=== PATIENT | male | born 1940 | race Caucasian/White ===

== ENCOUNTER 2018-11-28 12:09 | Inpatient (IN) | payer OTHER ==
[~2018-11-28] VITALS: Ht 162.6 cm; Wt 64.4 kg
[2018-11-28 12:14] VITALS: BP 102/62
--- NOTE | 2018-11-28 12:30 | NUR ---
77m biba with c/o 5/10 non provoked "sharp" intermittent chest pain that radiates to stomach, mid back, and bl arms x 3 days. Patient also reports of not "feeling like himself" and vomitting but denies any sob diarrhea or fevers. Pt is aox4 to person, place, time, and situation. RR are even and unlabored. Abd soft and non tender. Skin is warm/dry/color apprioriate for age. NAD. Awaiting er md sanchez. Pt to cardiac, bp, pulse, pulse ox monitoring. Will continue to monitor.
[2018-11-28] MEDS ORDERED: NACL 0.9% 2,000 ML IV ONE (12:44)
[2018-11-28] MEDS ORDERED: POTA10TE30 PO ×2 (12:47→20:30)
[2018-11-28] MEDS ORDERED: TRI48 PO ×2 (12:47→20:30)
[2018-11-28] MEDS ORDERED: ROSU10TA1 PO (12:47)
[2018-11-28] MEDS ORDERED: DILT300C16 PO ×2 (12:47→20:30)
[2018-11-28] MEDS ORDERED: VITD1000 PO (12:47)
[2018-11-28] MEDS ORDERED: CAR30 PO ×2 (12:47→20:30)
[2018-11-28] MEDS ORDERED: FISH1SGL18 PO (12:47)
[2018-11-28] MEDS ORDERED: MULT-2527 PO (12:47)
[2018-11-28] MEDS ORDERED: TERA5CAP8 PO ×2 (12:47→20:30)
[2018-11-28] MEDS ORDERED: ORE25 PO ×2 (12:47→20:30)
--- NOTE | 2018-11-28 12:56 | NUR ---
lab by bedside
[2018-11-28 13:08] LABS: BASOPHILS % (AUTO) 0.2 % (0.0-2.0); EOSINOPHILS % (AUTO) 0.3 % (0.0-4.0); HEMATOCRIT 38.6 % (36-52); HEMOGLOBIN 12.7 g/dL (12.0-18.0); LYMPHOCYTES # (AUTO) 0.2 K/uL (2.0-11.5); LYMPHOCYTES % (AUTO) 3.7 % (20.5-51.1); MEAN CORPUSCULAR HEMOGLOBIN 30 pg (27-31); MEAN CORPUSCULAR HGB CONC 33 g/dL (33-37); MEAN CORPUSCULAR VOLUME 91.3 fL (80-94); MONOCYTES # (AUTO) 0.1 K/uL (0.8-1.0); MONOCYTES % (AUTO) 1.1 % (1.7-9.3); NEUTROPHILS % (AUTO) 94.7 % (42.2-75.2); PLATELET COUNT (AUTO) 235 K/uL (140-450); RED BLOOD CELL COUNT(AUTO) 4.23 MIL/uL (4.20-6.10); RED CELL DISTRIBUTION WIDTH 14.5 % (11.6-13.7); WHITE BLOOD COUNT (AUTO) 5.3 K/uL (4.8-10.8)
[2018-11-28 13:32] LABS: ALBUMIN 2.6 g/dL (3.4-5.0); ANION GAP 10.2 (8-16); ASPARTATE AMINOTRANSFERASE 490 U/L (15-37); CARBON DIOXIDE 29.1 mmol/L (21-32); CHLORIDE 105 mmol/L (98-107); CREATININE 1.9 mg/dL (0.7-1.3); GLUCOSE 92 mg/dL (74-106); POTASSIUM 3.3 mmol/L (3.5-5.1); SODIUM SERUM 141 mmol/L (136-145); UREA NITROGEN, BLOOD 32 mg/dL (7-18)
[2018-11-28 13:33] LABS: PROTHROMBIN TIME 10.9 secs (10.8-13.4)
[2018-11-28] MEDS ORDERED: OSELTAMIVIR PHOSPHATE 75 MG CAP PO ONE (13:40)
[2018-11-28] MEDS ORDERED: ACETAMINOPHEN EXTRA STRENGTH 500 MG TAB PO ONE (14:15)
--- NOTE | 2018-11-28 14:50 | NUR ---
Patient denies any cp at this time. Patient with no new complaints. NAD. VSS. Will continue to monitor.
[2018-11-28 15:20] LABS: LIPASE 30516 U/L (73-393)
[2018-11-28] MEDS: NACL 0.9% 1,000 ML IV SCH ×2 (15:52→20:32)
[2018-11-28] MEDS ORDERED: DOCUSATE SODIUM 100 MG GELCAP PO PRN (15:55)
[2018-11-28] MEDS ORDERED: ONDANSETRON 4 MG/2 ML VIAL IM/IVP PRN (15:55)
[2018-11-28] MEDS ORDERED: ACETAMINOPHEN 325 MG TAB PO PRN (15:55)
[2018-11-28] MEDS ORDERED: MORPHINE SULFATE 4 MG/ML SYR IVP PRN (15:55)
[2018-11-28] MEDS ORDERED: LORazepam 2 MG/ML VIAL IM/IVP PRN (15:55)
[2018-11-28 16:33] LABS: MAGNESIUM 1.6 mg/dL (1.8-2.4); PHOSPHORUS 1.4 mg/dL (2.5-4.9); THYROID STIMULATING HORMONE 0.54 uIU/mL (0.34-3.74)
[2018-11-28] MEDS ORDERED: cefTRIAXone 1,000 MG VIAL ONE (16:37)
[2018-11-28] MEDS ORDERED: POTASSIUM CHLORIDE 40 MEQ, LIDOCAINE MPF 1% - 5 mL VIAL 25 MG in NACL 0.9% 250 ML IV ONE (16:45)
[2018-11-28] MEDS ORDERED: MAG SULF 2000 MG/WATER PREMIX 50 ML IV ONE ×2 (16:45→18:08)
[2018-11-28 16:52] LABS: APPEARANCE,URINE CLEAR (CLEAR); BILIRUBIN,URINE NEGATIVE (NEGATIVE); BLOOD, URINE TRACE-I (NEGATIVE); COLOR,URINE YELLOW (YELLOW); LEUKOCYTE ESTERASE ,URINE 1+ (NEGATIVE); NITRITE, URINE POSITIVE (NEGATIVE); UGLUCOSE NEGATIVE (NEGATIVE)
--- NOTE | 2018-11-28 16:52 | NUR ---
Patient will be admitted to care of [facility]. Admited to Tele. Will go to room 112-b. Belongings list completed. Bedside report to John ZAMUDIO.
[2018-11-28 17:00] VITALS: BP 111/55
--- NOTE | 2018-11-28 17:00 | NUR ---
RECEIVED BEDSIDE REPORT FROM ER NURSE. PATIENT IS AWAKE, ALERT AND ORIENTEDX4. NO SIGNS OF DISTRESS ON RA. SKIN IS INTACT. IV ON L FA 20G SL. CLEAN, DRY AND INTACT. PATIENT AMBULATED TO THE BED. WEAKNESS NOTED. FALL RISK PROTOCOL IN PLACE. PATIENT IS CONTINENT. TELE MONITOR IN PLACE. MRSA SWAB DONE. ALL ADMISSION QUESTIONS ANSWERED. BED IN LOW POSITION. CALL LIGHT WITHIN REACH. DROPLET PRECAUTIONS IN PLACE FOR INFLUENZA B. WILL CONTINUE TO MONITOR
[2018-11-28 17:02] LABS: RBC,URINE 3-10 (FEW) /HPF (0-5)
--- NOTE | 2018-11-28 18:06 | NUR ---
OVERRIDE MAGNESIUM WITH CHARGE NURSE RILEY, ADMINISTERED MG, MG 1.6. PATIENT TOLERATING WELL. WILL CONTINUE TO MONITOR THE PATIENT
--- NOTE | 2018-11-28 19:05 | NUR ---
RECEIVED ENDORSEMENT FROM AM SHIFT LEYLA; PATIENT A/Ox4 BUT WEAK, ABLE TO MAKE NEEDS KNOWN. ON DROPLET PRECAUTIONS. CURRENTLY NPO EXCEPT MEDS. NO SOB OR DISTRESS NOTED. IV SITE ON LEFT FOREARM, INTACT AND PATENT. SKIN INTACT. BOARD UPDATED. BED IN THE LOWEST POSITION, CALL LIGHT WITHIN REACH. WILL CONTINUE TO MONITOR.
--- NOTE | 2018-11-28 19:10 | NUR ---
gave bedside report to network account manager nurse. patient endorsed in stable condition
[2018-11-28] MEDS ORDERED: KCL 20 MEQ/WATER INJ PREMIX 200 ML IV ONE (19:45)
[2018-11-28 20:00] VITALS: BP 123/73
[2018-11-28] MEDS ORDERED: PIPERACILLIN/TAZOBACTAM 2.25 GM VIAL IV ONE (20:24)
[2018-11-28] MEDS: PIPER/TAZO 2.25GM/D5W PREMIX 50 ML IV SCH (20:28)
[2018-11-28] MEDS ORDERED: OSELTAMIVIR PHOSPHATE 75 MG CAP PO SCH (21:00)
--- NOTE | 2018-11-28 21:30 | NUR ---
FREQUENT ROUNDS MADE. PATIENT ASLEEP, EYES CLOSED, VISIBLE CHEST RISE AND FALL NOTED. WILL CONTINUE TO MONITOR.
[2018-11-29] VITALS: BP 137/76
--- NOTE | 2018-11-29 00:30 | NUR ---
PATIENT COMPLAINED OF 5/10 LEFT ABDOMINAL PAIN. WILL MEDICATE ORDERED. WILL CONTINUE TO MONITOR.
[2018-11-29] MEDS: HYDROcodone/APAP 5/325 MG 1 TAB TAB PO PRN (00:33)
--- NOTE | 2018-11-29 02:30 | NUR ---
ROUNDS DONE. PATIENT ASLEEP, EYES CLOSED, VISIBLE CHEST RISE AND FALL NOTED. WILL CONTINUE TO MONITOR.
[2018-11-29 04:00] VITALS: BP 133/72
--- NOTE | 2018-11-29 04:40 | NUR ---
IVF CHANGED. PATIENT ASLEEP, EYES CLOSED, VISIBLE CHEST RISE AND FALL NOTED. NO SOB OR DISTRESS NOTED. WILL CONTINUE TO MONITOR.
[2018-11-29] MEDS: PIPER/TAZO 2.25GM/D5W PREMIX 50 ML IV SCH ×3 (04:44→21:54)
[2018-11-29] MEDS: NACL 0.9% 1,000 ML IV SCH ×4 (04:44→13:14)
[2018-11-29] MEDS ORDERED: PIPERACILLIN/TAZOBACTAM 2.25 GM VIAL IV ONE (04:44)
--- NOTE | 2018-11-29 06:29 | NUR ---
ROUNDS DONE. PATIENT ASLEEP, EYES CLOSED, VISIBLE CHEST RISE AND FALL NOTED. NO SOB OR DISTRESS NOTED. WILL CONTINUE TO MONITOR.
--- NOTE | 2018-11-29 07:18 | NUR ---
ENDORSED PATIENT TO AM LIZZ TORO. PATIENT IN STABLE CONDITION.
--- NOTE | 2018-11-29 07:25 | NUR ---
RECEIVED PT REPORT FROM PLANER OFFBEARER RN AT BEDSIDE. PT IS AAOx4, ABLE TO MAKE NEEDS KNOWN. ON DROPLET PRECAUTIONS FOR FLU. CURRENTLY NPO EXCEPT MEDS. NO S/S DISTRESS NOTED. DENIES ANY PAIN. IV SITE ON LEFT FOREARM, 20G, INTACT AND PATENT, RUNNING IVF NS AT 126ML/HR. SKIN INTACT. BOARD UPDATED. BED IN THE LOWEST POSITION, CALL LIGHT WITHIN REACH. WILL CONTINUE TO MONITOR.
[2018-11-29 08:00] VITALS: BP 153/74
[2018-11-29] MEDS: POTASSIUM CHLORIDE 10 MEQ TABER PO SCH (08:06)
--- NOTE | 2018-11-29 08:06 | NUR ---
PATIENT HAS BEEN SCREENED AND CATEGORIZED HIGH NUTRITION RISK. PATIENT WILL BE SEEN WITHIN 1-2 DAYS OF ADMISSION. 11/29/18-11/30/[address]
[2018-11-29] MEDS: DILTIAZEM 60 MG TAB PO SCH ×2 (08:08→22:07)
[2018-11-29] MEDS: HYDROCHLOROTHIAZIDE 25 MG TAB PO SCH (08:09)
[2018-11-29] MEDS: LACTOBACILLUS RHAMNOSUS GG 1 EACH CAP PO SCH (08:09)
[2018-11-29 08:10] LABS: BASOPHILS % (AUTO) 0.1 % (0.0-2.0); EOSINOPHILS # (AUTO) 0.5 K/uL (0-0.4); EOSINOPHILS % (AUTO) 6.8 % (0.0-4.0); HEMOGLOBIN 12.1 g/dL (12.0-18.0); LYMPHOCYTES # (AUTO) 0.8 K/uL (2.0-11.5); LYMPHOCYTES % (AUTO) 10.3 % (20.5-51.1); MEAN CORPUSCULAR HEMOGLOBIN 30 pg (27-31); MEAN CORPUSCULAR HGB CONC 33 g/dL (33-37); MEAN CORPUSCULAR VOLUME 91.7 fL (80-94); MONOCYTES # (AUTO) 0.6 K/uL (0.8-1.0); MONOCYTES % (AUTO) 7.4 % (1.7-9.3); NEUTROPHILS # (AUTO) 5.7 K/uL (1.8-7.7); NEUTROPHILS % (AUTO) 75.4 % (42.2-75.2); PLATELET COUNT (AUTO) 223 K/uL (140-450); RED BLOOD CELL COUNT(AUTO) 4.03 MIL/uL (4.20-6.10); RED CELL DISTRIBUTION WIDTH 14.9 % (11.6-13.7); WHITE BLOOD COUNT (AUTO) 7.5 K/uL (4.8-10.8)
[2018-11-29] MEDS: TERAZOSIN 1 MG CAP PO SCH (08:11)
[2018-11-29] MEDS: FENOFIBRATE 48 MG TAB PO SCH (08:12)
[2018-11-29] MEDS: TAMIFLU 30 MG PO SCH (08:20)
[2018-11-29 08:21] LABS: ALBUMIN 2.2 g/dL (3.4-5.0); BILIRUBIN,DIRECT 3.7 mg/dL (0.0-0.3); MAGNESIUM 2.1 mg/dL (1.8-2.4); PHOSPHORUS 2.2 mg/dL (2.5-4.9); TOTAL BILIRUBIN 4.3 mg/dL (0.0-1.0)
[2018-11-29 08:23] LABS: ANION GAP 11.2 (8-16); CARBON DIOXIDE 26.5 mmol/L (21-32); CHLORIDE 108 mmol/L (98-107); CREATININE 1.7 mg/dL (0.7-1.3); GLUCOSE 107 mg/dL (74-106); POTASSIUM 3.7 mmol/L (3.5-5.1); SODIUM SERUM 142 mmol/L (136-145)
[2018-11-29 08:30] LABS: UREA NITROGEN, BLOOD 23 mg/dL (7-18)
[2018-11-29] MEDS ORDERED: ATORVASTATIN 20 MG TAB PO SCH (09:00)
[2018-11-29] MEDS ORDERED: DILTIAZEM 90 MG CAPER PO SCH (09:00)
[2018-11-29 09:14] LABS: CHOL/HDL RATIO 5.8 (1-4.5)
[2018-11-29 12:00] VITALS: BP 120/65
--- NOTE | 2018-11-29 12:23 | NUR ---
SPOKE WITH DR ORTEGA OVER THE PHONE. REPORTED US ABD RESULT, DR RATLIFF SAID NO ERCP NEEDED, HAVE THE SURGEON TO DO THE CHOLECYSTECTOMY. RELAYED THE MESSAGE TO DR ROWAN.
--- NOTE | 2018-11-29 12:35 | NUR ---
PT'S BROTHER VISITED, PT VERBALLY AGREED TO LET HIS BROTHER BE INVOLVED IN HIS CARE. PLAN OF CARE DISCUSSED WITH PT AND PT'S BROTHER AT BEDSIDE. BOTH VERBALIZED UNDERSTANDING.
[2018-11-29] MEDS ORDERED: XALOS OP (12:44)
--- NOTE | 2018-11-29 13:00 | NUR ---
HELPED PT TO THE BATHROOM. GAIT IS PRETTY STEADY. MINIMAL ASSISTANCE PROVIDED TO HELP PT GETTING UP. PT SAFELY RETURNED TO BED.
--- NOTE | 2018-11-29 13:45 | NUR ---
PT IS SL, LEFT FOR HIDA SCAN.
[2018-11-29] MEDS ORDERED: MORPHINE SULFATE 2 MG/ML SYR IVP SCH (15:00)
[2018-11-29 16:00] VITALS: BP 127/71
--- NOTE | 2018-11-29 17:00 | NUR ---
ADVANCE DIRECTIVE RECEIVED FROM PT'S JAZIEL DEL TORO. FILED TO PT'S CHART.
--- NOTE | 2018-11-29 17:03 | NUR ---
PAGED DR THOMAS.
--- NOTE | 2018-11-29 18:50 | NUR ---
PT SIGNED THE CONSENT FOR SX. NO QUESTIONS AT THIS TIME.
--- NOTE | 2018-11-29 19:00 | NUR ---
RECEIVED PT AT BED SIDE FROM MUNA ZAMUDIO .PT IS AAOX4, ON TELEMETRY SR , IV ON LEFT FA INFUSING WELL PT IS READY GOING TO SURGERY , OR NURSES ARE HERE TO EQUIPMENT INSPECTOR PT FOR LAPAROSCOPIC POSSIBLE OPEN CHOLECYSTECTOMY,, INITIAL ASSESSMENT DONE
[2018-11-29] MEDS ORDERED: DEXAMETHASONE 4 MG/ML VIAL ONE (19:28)
[2018-11-29] MEDS ORDERED: DESFLURANE 240 ML BTL INH ONE (19:28)
[2018-11-29] MEDS ORDERED: LIDOCAINE 2% 100 MG/5 ML SYR IVP ONE (19:28)
[2018-11-29] MEDS ORDERED: ROCURONIUM 50 MG/5 ML VIAL IV ONE (19:28)
[2018-11-29] MEDS ORDERED: fentaNYL 0.05 MG/ML VIAL ONE (19:28)
[2018-11-29] MEDS ORDERED: SUCCINYLCHOLINE CHLORIDE 200 MG/10 ML VIAL IVP ONE (19:28)
[2018-11-29] MEDS ORDERED: ONDANSETRON 4 MG/2 ML VIAL ONE (19:28)
[2018-11-29] MEDS ORDERED: PHENYLEPHRINE 10 MG/ML VIAL ONE (19:28)
[2018-11-29] MEDS ORDERED: GLYCOPYRROLATE 0.2 MG/ML VIAL ONE (19:28)
[2018-11-29] MEDS ORDERED: PROPOFOL 200 MG/20 ML VIAL IV ONE (19:28)
--- NOTE | 2018-11-29 19:30 | NUR ---
ENDORSED PT TO FOUNDRY MOLDER. PT IS IN OR RIGHT NOW.
[2018-11-29] MEDS ORDERED: BUPIVACAINE-MPF/EPI 0.25% 30 ML VIAL INJ ONE (19:40)
[2018-11-29] MEDS ORDERED: ONDANSETRON 4 MG/2 ML VIAL IVP PRN (20:05)
[2018-11-29] MEDS ORDERED: HYDROmorphone 1 MG/ML AMP IVP PRN (20:05)
[2018-11-29] MEDS ORDERED: LATANOPROST 0.005% OP 2.5 ML BTL OP SCH (21:00)
--- NOTE | 2018-11-29 21:10 | NUR ---
RECEIVED PATIENT FROM OR S/P DEEDEE DELAROSA TO ICU ROOM 7. PT ON DROPLET PRECAUTIONS. PT AOX4. AFEBRILE. FOLLOWS COMMANDS. ABLE TO VERBALIZE NEEDS. ON NC 2LPM. EVEN UNLABORED BREATHING. SR ON MONITOR. DENIES CHEST PAIN. ABD SOFT NONDISTENDED. J DRAIN TO RIGHT ABD. FLUIDS TOLERATED. F/C IN PLACE. RED TINGED URINE. LAC 18G. IV SITE PATENT. ACTIVITY TOLERATED. NO SIGNS OF ACUTE DISTRESS. BED IN LOWEST POSITION. WILL CONTINUE TO MONITOR.
[2018-11-29] MEDS ORDERED: ACETAMINOPHEN 325 MG TAB PO PRN (21:20)
[2018-11-29] MEDS ORDERED: HYDROcodone/APAP 5/325 MG 1 TAB TAB PO PRN (21:20)
[2018-11-29] MEDS ORDERED: ONDANSETRON 4 MG/2 ML VIAL IV PRN (21:20)
[2018-11-29] MEDS ORDERED: MORPHINE SULFATE 4 MG/ML SYR IVP PRN (21:20)
[2018-11-29] MEDS: MORPHINE SULFATE 4 MG/ML SYR IV PRN (21:54)
[2018-11-29] MEDS: LATANOPROST 0.005% OP 2.5 ML BTL OP SCH (21:59)
[2018-11-29 22:21] VITALS: BP 127/71
--- NOTE | 2018-11-29 22:52 | NUR ---
PT REPORTS PAIN 8/10 TO LEFT ABD. WILL ADMINISTER BREAKTHROUGH PAIN MEDICATION.
[2018-11-30] VITALS (9 sets, daily range): BP systolic 115–157; BP diastolic 59–99
--- NOTE | 2018-11-30 01:48 | NUR ---
PT RESTING QUIETLY IN BED. NO SIGNS OF ACUTE DISTRESS AT THIS TIME.
[2018-11-30] MEDS: HYDROmorphone 1 MG/ML AMP IVP PRN ×2 (03:03→14:39)
--- NOTE | 2018-11-30 03:03 | NUR ---
PT C/O PAIN TO ABD. 07/12. WILL ADMINISTER DILAUDID IVP.
--- NOTE | 2018-11-30 04:03 | NUR ---
PT SLEEPING. NO SIGNS OF ACUTE DISTRESS NOTED.
[2018-11-30] MEDS: PIPER/TAZO 2.25GM/D5W PREMIX 50 ML IV SCH ×3 (04:34→20:22)
[2018-11-30] MEDS: NACL 0.9% 1,000 ML IV SCH ×4 (05:38→23:36)
--- NOTE | 2018-11-30 05:50 | NUR ---
RETRIEVED PHONE FROM [facility]. CELL PHONE AT BEDSIDE. DESCRIPTION: BLACK FLIP PHONE.
[2018-11-30 06:18] LABS: HEMATOCRIT 38.7 % (36-52); HEMOGLOBIN 12.5 g/dL (12.0-18.0); LYMPHOCYTES # (AUTO) 0.4 K/uL (2.0-11.5); LYMPHOCYTES % (AUTO) 3.4 % (20.5-51.1); MEAN CORPUSCULAR HEMOGLOBIN 30 pg (27-31); MEAN CORPUSCULAR HGB CONC 32 g/dL (33-37); MEAN CORPUSCULAR VOLUME 93.4 fL (80-94); MONOCYTES # (AUTO) 0.4 K/uL (0.8-1.0); MONOCYTES % (AUTO) 4.1 % (1.7-9.3); NEUTROPHILS # (AUTO) 9.8 K/uL (1.8-7.7); NEUTROPHILS % (AUTO) 92.5 % (42.2-75.2); PLATELET COUNT (AUTO) 246 K/uL (140-450); RED BLOOD CELL COUNT(AUTO) 4.15 MIL/uL (4.20-6.10); RED CELL DISTRIBUTION WIDTH 15.6 % (11.6-13.7); WHITE BLOOD COUNT (AUTO) 10.6 K/uL (4.8-10.8)
--- NOTE | 2018-11-30 06:27 | NUR ---
DR. ROWAN AT BEDSIDE AT THIS TIME. UPDATED ON PTS CURRENT CONDITION. WILL CONTINUE TO FOLLOW UP ANY ADDITIONAL ORDERS.
[2018-11-30 06:45] LABS: ANION GAP 10.9 (8-16); CARBON DIOXIDE 26.9 mmol/L (21-32); CHLORIDE 108 mmol/L (98-107); CREATININE 1.6 mg/dL (0.7-1.3); GLUCOSE 114 mg/dL (74-106); POTASSIUM 4.8 mmol/L (3.5-5.1); SODIUM SERUM 141 mmol/L (136-145); UREA NITROGEN, BLOOD 20 mg/dL (7-18)
[2018-11-30 06:48] LABS: MAGNESIUM 1.8 mg/dL (1.8-2.4); PHOSPHORUS 3.7 mg/dL (2.5-4.9)
--- NOTE | 2018-11-30 07:26 | NUR ---
ENDORSED CARE TO INCOMING SHIFT FOR CONTINUITY OF CARE. VSS. BED IN LOWEST POSITION. CALL LIGHT WITHIN REACH.
--- NOTE | 2018-11-30 07:30 | NUR ---
RECEIVED BEDSIDE REPORT FROM MARKETING ANALYTICS SPECIALIST NURSE. PT IS AAOX4. ABLE TO MAKE NEEDS KNOWN AND FOLLOWS COMMANDS. AFEBRILE. S/P LAP ISAURA. PAIN 2/10 AT THIS TIME. SR ON MONITOR. PT IS ON O2 AT 2 LPM/NC. BREATHING EVEN AND UNLABORED. DENIES CHEST PAIN. ABD SOFT, NONTENDER, NONDISTENDED. J DRAIN TO RIGHT ABD DRAINING DARK BROWN DRAINAGE. SURGICAL OPENINGS BAND-AID ON, CLEAN DRY AND INTACT. MCDONALD CATH IN PLACE DRAINING YELLOW URINE. PERIPHERAL IV G20 TO LEFT FOREARM PATENT AND INTACT, RECEIVING IV FLUID NS AT 126 ML/HR. BED IN LOWEST POSITION AND CALL LIGHT WITHIN REACH. WILL CONTINUE TO MONITOR.
[2018-11-30 08:55] LABS: ALBUMIN 2.2 g/dL (3.4-5.0); BILIRUBIN,DIRECT 2.1 mg/dL (0.0-0.3); TOTAL BILIRUBIN 2.5 mg/dL (0.0-1.0)
--- NOTE | 2018-11-30 09:00 | NUR ---
PERIPHERAL IV TO LEFT FOREARM DISCONNECTED FROM PT'S ARM MOVEMENT. NEW PERIPHERAL IV G22 INSERTED TO LEFT FOREARM, GOOD BLOOD RETURN NOTED. FLUSHED W/ NORMAL SALINE. PT TOLERATED WELL.
[2018-11-30] MEDS: HYDROCHLOROTHIAZIDE 25 MG TAB PO SCH (09:10)
[2018-11-30] MEDS: DILTIAZEM 60 MG TAB PO SCH ×2 (09:10→20:36)
[2018-11-30] MEDS: FENOFIBRATE 48 MG TAB PO SCH (09:10)
[2018-11-30] MEDS: TERAZOSIN 1 MG CAP PO SCH (09:11)
[2018-11-30] MEDS: LACTOBACILLUS RHAMNOSUS GG 1 EACH CAP PO SCH (09:11)
[2018-11-30] MEDS: POTASSIUM CHLORIDE 10 MEQ TABER PO SCH (09:11)
[2018-11-30] MEDS: TAMIFLU 30 MG PO SCH (09:12)
[2018-11-30] MEDS: ENOXAPARIN 30 MG/0.3 ML SYR SUBQ SCH (09:18)
--- NOTE | 2018-11-30 09:50 | NUR ---
MEDICATIONS ADMINISTERED ORDERED. PT TOLERATED WELL.
--- NOTE | 2018-11-30 11:22 | NUR ---
PT SEEN AND EXAMINED BY DR. THOMAS. WILL FOLLOW UP ON ORDERS.
--- NOTE | 2018-11-30 11:55 | NUR ---
LUNCH PROVIDED. PT ABLE TO EAT INDEPENDENTLY WITH MINIMAL ASSIST.
[2018-11-30 12:28] LABS: HEPATITIS A ANTIBODY IGM Negative (Negative); HEPATITIS B SURFACE ANTIBODY Non Reactive (.); HEPATITIS B SURFACE ANTIGEN Negative (Negative)
--- NOTE | 2018-11-30 13:06 | NUR ---
11/30/18 RD INITIAL ASSESSMENT COMPLETED PLEASE REFER TO NUTRITION ASSESSMENT UNDER CARE ACTIVITY FOR ESTIMATED NUTRITIONAL NEEDS. 1. CONTINUE CLEAR LIQUID DIET MEDICALLY NECESSARY 2. WHEN/IF PATIENT MEDICALLY STABLE TO BEGIN NUTRITION, RECOMMEND ADVANCE DIET TO [address] TO FOLLOW-UP 3-5 DAYS, MODERATE RISK ROB[address] RD
[2018-11-30 14:24] LABS: HEPATITIS B CORE AB TOTAL POSITIVE (NEGATIVE)
--- NOTE | 2018-11-30 14:35 | NUR ---
C/O PAIN OF 8/10 AT RIGHT ABD. WILL ADMINISTER PAIN MEDICATION ORDERED.
--- NOTE | 2018-11-30 16:05 | NUR ---
NO CHANGE OF CONDITION AT THIS TIME. PT IS AFEBRILE, VSS. NO C/O PAIN AT THIS TIME. 30 ML OF SANGUINOUS FLUID DRAINED FROM FUAD DRAIN. SAFETY PRECAUTIONS IN PLACE.
--- NOTE | 2018-11-30 17:44 | NUR ---
PT HAVING DINNER. BROTHER AND NIECE AT BEDSIDE. NEEDS WELL ATTENDED. NO SOB OR DISTRESS NOTED. PT DENIES PAIN. VSS. WILL CONTINUE TO MONITOR.
--- NOTE | 2018-11-30 19:00 | NUR ---
PT TRANSFERRED TO TELEMETRY ROOM 117. REPORT GIVEN TO LIZZ CROSS AT BEDSIDE. PT IS IN STABLE CONDITION.
--- NOTE | 2018-11-30 19:05 | NUR ---
RECEIVED REPORT FROM ICU NURSE FOR CONTINUITY OF CARE. PT IN STABLE CONDITION. IV INTACT AND PATENT. RESPIRATIONS EVEN AND UNLABORED. SAFETY MEASURES IN PLACE. CALL LIGHT AT BEDSIDE. BED IN LOW POSITION. WILL CONTINUE TO MONITOR.
--- NOTE | 2018-11-30 19:20 | NUR ---
GAVE REPORT TO PADDING GLUER NURSE FOR CONTINUITY OF CARE. PT IN STABLE CONDITION.
--- NOTE | 2018-11-30 19:21 | NUR ---
RECEIVED BEDSIDE REPORT FROM DAY SHIFT LIZZ CROSS. PT IS A&OX4. HAS NC AT 2L. NO S/S OF DISTRESS NOTED. PT HAS IV ON L FA 22G CURRENTLY SALINE LOCK. PT S/P LAP ISAURA WITH FUAD DRAIN IN PLACE DRAINING SEROSANGUINEOUS. DRESSINGS ARE CLEAN AND INTACT. PT WITH MCDONALD CATH IN PLACE. DRAINING CLEAR YELLOW URINE PER NURSE ORDER TO D/C TOMORROW. PT ON DROPLET ISOLATION FOR POSITIVE INFLUENZA B. SIGN ON THE DOOR. PLAN OF CARE DISCUSSED WITH PT. CALL LIGHT WITHIN REACH.
[2018-11-30] MEDS: MORPHINE SULFATE 4 MG/ML SYR IV PRN (20:16)
[2018-11-30] MEDS ORDERED: PIPERACILLIN/TAZOBACTAM 2.25 GM VIAL IV ONE (20:16)
[2018-11-30] MEDS ORDERED: MORPHINE SULFATE 4 MG/ML SYR ONE (20:20)
[2018-11-30] MEDS: LATANOPROST 0.005% OP 2.5 ML BTL OP SCH (20:41)
--- NOTE | 2018-11-30 20:41 | NUR ---
VITAL SIGNS ARE WITHIN NORMAL LIMITS. REMOVED NC PT SAT AT 97% ROOM AIR. DUE MEDICATIONS ADMINISTERED. CALL LIGHT WITHIN REACH. WILL CONTINUE TO MONITOR.
--- NOTE | 2018-11-30 22:00 | NUR ---
PT IS SLEEPING COMFORTABLY IN BED. NO S/S OF DISTRESS NOTED. WILL CONTINUE TO MONITOR.
[2018-12-01] VITALS: BP 155/81
--- NOTE | 2018-12-01 | NUR ---
VITAL SIGNS ARE WITHIN NORMAL LIMITS. ALL NEEDS MET AT THIS TIME. CALL LIGHT WITHIN REACH
--- NOTE | 2018-12-01 02:40 | NUR ---
PT SLEEPING COMFORTABLY IN BED. NO S/S OF DISTRESS. CALL LIGHT WITHIN REACH.
[2018-12-01 04:00] VITALS: BP 128/60
--- NOTE | 2018-12-01 04:00 | NUR ---
VITAL SIGNS ARE WITHIN NORMAL LIMITS. CALL LIGHT WITHIN REACH.
[2018-12-01] MEDS: PIPER/TAZO 2.25GM/D5W PREMIX 50 ML IV SCH ×3 (05:11→20:20)
--- NOTE | 2018-12-01 05:20 | NUR ---
MCDONALD CATH REMOVED PER ORDERS. PT TOLERATED WELL. WILL CONTINUE TO MONITOR
[2018-12-01 06:31] LABS: BASOPHILS % (AUTO) 0.1 % (0.0-2.0); EOSINOPHILS # (AUTO) 0.1 K/uL (0-0.4); HEMATOCRIT 35.7 % (36-52); HEMOGLOBIN 11.5 g/dL (12.0-18.0); LYMPHOCYTES # (AUTO) 0.8 K/uL (2.0-11.5); LYMPHOCYTES % (AUTO) 8.9 % (20.5-51.1); MEAN CORPUSCULAR HEMOGLOBIN 30 pg (27-31); MEAN CORPUSCULAR HGB CONC 32 g/dL (33-37); MEAN CORPUSCULAR VOLUME 92.8 fL (80-94); MONOCYTES # (AUTO) 0.6 K/uL (0.8-1.0); MONOCYTES % (AUTO) 6.3 % (1.7-9.3); NEUTROPHILS # (AUTO) 7.5 K/uL (1.8-7.7); NEUTROPHILS % (AUTO) 83.7 % (42.2-75.2); PLATELET COUNT (AUTO) 231 K/uL (140-450); RED BLOOD CELL COUNT(AUTO) 3.85 MIL/uL (4.20-6.10); WHITE BLOOD COUNT (AUTO) 8.9 K/uL (4.8-10.8)
[2018-12-01 06:59] LABS: ANION GAP 7.8 (8-16); CARBON DIOXIDE 26.1 mmol/L (21-32); CHLORIDE 107 mmol/L (98-107); CREATININE 1.4 mg/dL (0.7-1.3); GLUCOSE 117 mg/dL (74-106); POTASSIUM 3.9 mmol/L (3.5-5.1); SODIUM SERUM 137 mmol/L (136-145); UREA NITROGEN, BLOOD 17 mg/dL (7-18)
[2018-12-01 07:05] LABS: MAGNESIUM 1.6 mg/dL (1.8-2.4)
--- NOTE | 2018-12-01 07:20 | NUR ---
ENDORSED TO DAY SHIFT RN. PT IS IN STABLE CONDITION.
--- NOTE | 2018-12-01 07:21 | NUR ---
RECEIVED BEDSIDE REPORT FROM MOLD MAINTENANCE TECHNICIAN NURSE. PATIENT AAOX4. PATIENT ON ROOM AIR, NO DISTRESS NOTED. SKIN INTACT EXCEPT FOR ABDOMINAL INCISION WI FUAD DRAIN DRY AND INTACT. SURGICAL SITE DRESSINGS INTACT. PATIENT WILL SEE PT TODAY. IV ON LFA 22 G INFUSING NS AT 126. PATIENT ON DROPLET PRECAUTIONS FOR INFLUENZA B (+). PATIENT ON TELE MONITOR. SCDS IN PLACE. BED IN LOW POSITION, CALL LIGHT WITHIN REACH. WILL CONTINUE TO MONITOR.
[2018-12-01] MEDS: MORPHINE SULFATE 4 MG/ML SYR IV PRN ×2 (07:56→12:09)
[2018-12-01 08:00] VITALS: BP 141/78
[2018-12-01] MEDS ORDERED: OSELTAMIVIR PHOSPHATE 75 MG CAP PO SCH (09:00)
[2018-12-01] MEDS: TAMIFLU 30 MG PO SCH ×2 (09:00→21:30)
[2018-12-01 09:06] LABS: ALBUMIN 1.9 g/dL (3.4-5.0); BILIRUBIN,DIRECT 0.8 mg/dL (0.0-0.3); TOTAL BILIRUBIN 1.2 mg/dL (0.0-1.0)
[2018-12-01] MEDS: ENOXAPARIN 30 MG/0.3 ML SYR SUBQ SCH (09:45)
[2018-12-01] MEDS: POTASSIUM CHLORIDE 10 MEQ TABER PO SCH (09:51)
[2018-12-01] MEDS: LACTOBACILLUS RHAMNOSUS GG 1 EACH CAP PO SCH (09:51)
[2018-12-01] MEDS: TERAZOSIN 1 MG CAP PO SCH (09:52)
[2018-12-01] MEDS: FENOFIBRATE 48 MG TAB PO SCH (09:52)
[2018-12-01] MEDS: DILTIAZEM 60 MG TAB PO SCH ×2 (09:56→20:20)
[2018-12-01] MEDS: HYDROCHLOROTHIAZIDE 25 MG TAB PO SCH (09:57)
[2018-12-01] MEDS ORDERED: MAG SULF 2000 MG/WATER PREMIX 50 ML IV SCH (11:00)
[2018-12-01] MEDS: NACL 0.9% 1,000 ML IV SCH ×2 (11:04→18:18)
--- NOTE | 2018-12-01 12:09 | NUR ---
ADMINISTERED MORPHINE [address] THOMAS FOR SUTURE REMOVAL. BP 129/69 AND HR 94. WILL CONTINUE TO MONITOR PATIENT.
--- NOTE | 2018-12-01 13:30 | NUR ---
NIECE AT BEDSIDE. ANSWERED ALL QUESTIONS AND CONCERNS AT THIS TIME. NO DISTRESS NOTED. WILL CONTINUE TO MONITOR.
[2018-12-01 16:00] VITALS: BP 126/66
--- NOTE | 2018-12-01 19:09 | NUR ---
GAVE REPORT TO SUPERVISOR CUSTOMER RECORDS DIVISION NURSE. PATIENT ENDORSED IN STABLE CONDITION.
--- NOTE | 2018-12-01 19:11 | NUR ---
RECEIVED ENDORSEMENT FROM AM SHIFT RN FRANCISCO JAVIER. PATIENT A&Ox4, ABLE TO MAKE NEEDS KNOWN. NO SOB OR DISTRESS NOTED. IV SITE ON LEST FOREARM, 22 GAUGE, INFUSING NS AT 126mL/HR. PATIENT S/P LAP CHOLECYSTECTOMY; ABDOMINAL INCISION ON RIGHT LOWER ABDOMEN WITH FUAD DRAIN DRY AND INTACT. SURGICAL SITE DRESSINGS INTACT. PATIENT ON DROPLET PRECAUTIONS FOR INFLUENZA B (+). SCDS IN PLACE. BED IN THE LOWEST POSITION, CALL LIGHT WITHIN REACH. INITIAL ASSESSMENT DONE, ALL SAFETY PRECAUTIONS MET. WILL CONTINUE TO MONITOR.
--- NOTE | 2018-12-01 20:15 | NUR ---
DUE MEDS ADMINISTERED. NO S/SX OF DISTRESS NOTED. TOLERATED WELL. WILL CONTINUE TO MONITOR.
[2018-12-01] MEDS: LATANOPROST 0.005% OP 2.5 ML BTL OP SCH (20:22)
--- NOTE | 2018-12-01 22:40 | NUR ---
ROUNDS DONE. PATIENT ASLEEP, EYES CLOSED, VISIBLE CHEST RISE AND FALL NOTED. WILL CONTINUE TO MONITOR.
--- NOTE | 2018-12-02 01:01 | NUR ---
ROUNDS DONE. PATIENT ASLEEP, EYES CLOSED, VISIBLE CHEST RISE AND FALL NOTED. WILL CONTINUE TO MONITOR.
--- NOTE | 2018-12-02 03:32 | NUR ---
ROUNDS MADE. PATIENT ASLEEP, EYES CLOSED, VISIBLE CHEST RISE AND FALL NOTED. WILL CONTINUE TO MONITOR.
[2018-12-02] MEDS: PIPER/TAZO 2.25GM/D5W PREMIX 50 ML IV SCH ×3 (05:26→20:42)
--- NOTE | 2018-12-02 07:15 | NUR ---
ENDORSED PATIENT TO AM RN TANK; PATIENT IN STABLE CONDITION.
--- NOTE | 2018-12-02 07:30 | NUR ---
RECEIVED PT ON BED AAOX4. NO SOB NOTED. NO C/O PAIN AT THIS TIME. IV TO LT HAND PATENT AND INTACT. CHEST, DIMINISHED AIR ENTRY TO THE BASES, PT ON 2LPM OXYGEN THERAPY VIA NASAL CANNULA. ABDOMEN SOFT, BOWEL SOUNDS PRESENT, WITH 4 SMALL ABDOMINAL INCISIONS S/P LAP ISAURA, WITH RT FUAD DRAINING SMALL AMOUNTS OF SERO SANGUINOUS FLUID. NO EDEMA NOTED. INSTRUCTED PT TO CALL FOR ASSISTANCE, CALL LIGHT WITHIN REACH, PT VERBALIZED UNDERSTANDING.
[2018-12-02 08:08] LABS: BASOPHILS % (AUTO) 0.1 % (0.0-2.0); EOSINOPHILS # (AUTO) 0.2 K/uL (0-0.4); EOSINOPHILS % (AUTO) 2.5 % (0.0-4.0); HEMATOCRIT 34.8 % (36-52); HEMOGLOBIN 11.5 g/dL (12.0-18.0); LYMPHOCYTES # (AUTO) 0.9 K/uL (2.0-11.5); LYMPHOCYTES % (AUTO) 9.7 % (20.5-51.1); MEAN CORPUSCULAR HEMOGLOBIN 30 pg (27-31); MEAN CORPUSCULAR HGB CONC 33 g/dL (33-37); MEAN CORPUSCULAR VOLUME 91.4 fL (80-94); MONOCYTES # (AUTO) 0.8 K/uL (0.8-1.0); MONOCYTES % (AUTO) 8.5 % (1.7-9.3); NEUTROPHILS # (AUTO) 7.4 K/uL (1.8-7.7); NEUTROPHILS % (AUTO) 79.2 % (42.2-75.2); PLATELET COUNT (AUTO) 234 K/uL (140-450); RED BLOOD CELL COUNT(AUTO) 3.81 MIL/uL (4.20-6.10); RED CELL DISTRIBUTION WIDTH 14.9 % (11.6-13.7); WHITE BLOOD COUNT (AUTO) 9.4 K/uL (4.8-10.8)
[2018-12-02] MEDS: NACL 0.9% 1,000 ML IV SCH (08:18)
[2018-12-02 08:20] LABS: ANION GAP 8.7 (8-16); CARBON DIOXIDE 26.6 mmol/L (21-32); CHLORIDE 104 mmol/L (98-107); CREATININE 1.4 mg/dL (0.7-1.3); GLUCOSE 97 mg/dL (74-106); POTASSIUM 3.3 mmol/L (3.5-5.1); SODIUM SERUM 136 mmol/L (136-145); UREA NITROGEN, BLOOD 16 mg/dL (7-18)
[2018-12-02 08:23] LABS: MAGNESIUM 1.6 mg/dL (1.8-2.4); PHOSPHORUS 2.3 mg/dL (2.5-4.9)
[2018-12-02 09:04] VITALS: BP 139/76
--- NOTE | 2018-12-02 09:30 | NUR ---
PHYSICAL THERAPY ON GOING AT THE BEDSIDE.
[2018-12-02] MEDS: ENOXAPARIN 30 MG/0.3 ML SYR SUBQ SCH (10:27)
[2018-12-02] MEDS: TERAZOSIN 1 MG CAP PO SCH (10:28)
[2018-12-02] MEDS: POTASSIUM CHLORIDE 10 MEQ TABER PO SCH (10:28)
[2018-12-02] MEDS: DILTIAZEM 60 MG TAB PO SCH ×2 (10:29→20:44)
[2018-12-02] MEDS: FENOFIBRATE 48 MG TAB PO SCH (10:29)
[2018-12-02] MEDS: LACTOBACILLUS RHAMNOSUS GG 1 EACH CAP PO SCH (10:29)
[2018-12-02] MEDS: HYDROCHLOROTHIAZIDE 25 MG TAB PO SCH (10:30)
[2018-12-02] MEDS: TAMIFLU 30 MG PO SCH ×2 (10:31→20:44)
[2018-12-02] MEDS ORDERED: MAGNESIUM OXIDE 400 MG TAB PO SCH (13:30)
[2018-12-02] MEDS ORDERED: POTASSIUM CHLORIDE 10 MEQ TABER PO SCH (13:30)
--- NOTE | 2018-12-02 14:30 | NUR ---
PT ABLE TO TO GO THE BATHROOM TO URINATE WITH ASSIST ACTIVITY TOLERATED WELL.
[2018-12-02 16:00] VITALS: BP 107/66
--- NOTE | 2018-12-02 19:00 | NUR ---
PT AWAKE. NO SOB NOTED. NO COMPLAINTS MADE. WILL ENDORSE TO NEXT SHIFT.
--- NOTE | 2018-12-02 19:15 | NUR ---
RECEIVED PT FROM TANK RN PT AAOX4 IV ON LEFT ARM INFUSING WELL 4 SMALL CUT S/P LAP ISAURA FUAD EMPTY DENIES ANY PAIN INITIAL ASSESSMENT DONE
[2018-12-02 20:00] VITALS: BP 133/76
--- NOTE | 2018-12-02 20:26 | NUR ---
RECEIVED PATIENT ON 2L NC, PULSE OX SAT 96%. NO RESPIRATORY DISTRESS NOTED. WILL CONTINUE TO MONITOR.
[2018-12-02] MEDS: LATANOPROST 0.005% OP 2.5 ML BTL OP SCH (20:43)
[2018-12-02] MEDS: HYDROcodone/APAP 5/325 MG 1 TAB TAB PO PRN (20:45)
--- NOTE | 2018-12-02 21:45 | NUR ---
AFTER KLPAIN MEDIC GIVEN PT IS SLEEPING WELL
--- NOTE | 2018-12-03 | NUR ---
PT SLEEPING WELL DENIES ANY DISTRESS NOTES
[2018-12-03] MEDS: NACL 0.9% 1,000 ML IV SCH ×2 (00:58→11:43)
--- NOTE | 2018-12-03 04:00 | NUR ---
SPONGE BATH GIVEN LINEN CHANGED FUAD DRAINING SMALL AMOUNT SERSANGUINEOUS APPROX 5 ML
[2018-12-03] MEDS: PIPER/TAZO 2.25GM/D5W PREMIX 50 ML IV SCH ×4 (04:36→23:08)
[2018-12-03] MEDS ORDERED: MAG SULF 2000 MG/WATER PREMIX 50 ML IV ONE (06:20)
[2018-12-03] MEDS ORDERED: POTASSIUM CHLORIDE 10 MEQ TABER PO ONE (06:25)
[2018-12-03 06:27] LABS: BASOPHILS % (AUTO) 0.1 % (0.0-2.0); EOSINOPHILS # (AUTO) 0.3 K/uL (0-0.4); EOSINOPHILS % (AUTO) 3.2 % (0.0-4.0); HEMOGLOBIN 11.2 g/dL (12.0-18.0); LYMPHOCYTES # (AUTO) 1.2 K/uL (2.0-11.5); LYMPHOCYTES % (AUTO) 11.5 % (20.5-51.1); MEAN CORPUSCULAR HEMOGLOBIN 30 pg (27-31); MEAN CORPUSCULAR HGB CONC 33 g/dL (33-37); MEAN CORPUSCULAR VOLUME 91.4 fL (80-94); MONOCYTES # (AUTO) 0.8 K/uL (0.8-1.0); NEUTROPHILS % (AUTO) 77.2 % (42.2-75.2); PLATELET COUNT (AUTO) 248 K/uL (140-450); RED BLOOD CELL COUNT(AUTO) 3.72 MIL/uL (4.20-6.10); RED CELL DISTRIBUTION WIDTH 14.9 % (11.6-13.7); WHITE BLOOD COUNT (AUTO) 10.3 K/uL (4.8-10.8)
[2018-12-03 06:47] LABS: ALBUMIN 1.6 g/dL (3.4-5.0); ANION GAP 6.2 (8-16); ASPARTATE AMINOTRANSFERASE 45 U/L (15-37); CARBON DIOXIDE 28.4 mmol/L (21-32); CHLORIDE 106 mmol/L (98-107); CREATININE 1.3 mg/dL (0.7-1.3); GLUCOSE 105 mg/dL (74-106); MAGNESIUM 1.8 mg/dL (1.8-2.4); PHOSPHORUS 1.8 mg/dL (2.5-4.9); POTASSIUM 3.6 mmol/L (3.5-5.1); SODIUM SERUM 137 mmol/L (136-145); TOTAL BILIRUBIN 1.4 mg/dL (0.0-1.0); UREA NITROGEN, BLOOD 16 mg/dL (7-18)
--- NOTE | 2018-12-03 07:05 | NUR ---
PT AAOX4 ASSISTED TO THE RESTROOM VOIDING WELL FUAD ALL TUBE DEPATCHER 5 ML PT WILL BE ENDORSED TO DAY SHIFT FOR CONTINUITY OF CARE
--- NOTE | 2018-12-03 07:25 | NUR ---
RECEIVED BEDSIDE REPORT FROM LIZZ JEAN. PT STABLE, AWAKE, AND ALERT. NO SIGNS OF DISTRESS NOTED. DENIES PAIN. NO INFLAMMATION, REDNESS, OR SWELLING NOTED ON IV SITE. FUAD DRAIN INTACT, DRESSING CLEAN AND DRY. CALL MELTON WITHIN REACH. BED IN LOW POSITION. SAFETY MEASURES IN PLACE. PLAN OF CARE REVIEWED.
[2018-12-03 08:00] VITALS: BP 150/61
[2018-12-03] MEDS ORDERED: SODIUM PHOS / POTASSIUM PHOS 1 PKT PDR PO SCH (09:00)
[2018-12-03] MEDS: SODIUM PHOS / POTASSIUM PHOS 1 PKT PDR PO SCH ×4 (09:30→20:57)
[2018-12-03] MEDS: DILTIAZEM 60 MG TAB PO SCH ×2 (09:31→20:57)
[2018-12-03] MEDS: FENOFIBRATE 48 MG TAB PO SCH (09:31)
[2018-12-03] MEDS: TERAZOSIN 1 MG CAP PO SCH (09:31)
[2018-12-03] MEDS: HYDROCHLOROTHIAZIDE 25 MG TAB PO SCH (09:32)
[2018-12-03] MEDS: POTASSIUM CHLORIDE 10 MEQ TABER PO SCH (09:32)
[2018-12-03] MEDS: LACTOBACILLUS RHAMNOSUS GG 1 EACH CAP PO SCH (09:33)
[2018-12-03] MEDS: ENOXAPARIN 30 MG/0.3 ML SYR SUBQ SCH (09:34)
--- NOTE | 2018-12-03 09:40 | NUR ---
ADMINISTERED SCHEDULED MEDICATIONS. PT TOLERATED WELL. NO OTHER NEEDS AT THIS TIME.
[2018-12-03] MEDS: TAMIFLU 30 MG PO SCH (09:41)
--- NOTE | 2018-12-03 10:10 | NUR ---
PER DR. HASSAN'S REQUEST POST LAP ISAURA WOUNDS EVALUATION WITH REMOVAL OF FUAD DRAIN DONE. FUAD DRAIN WITH 25 ML DARK BROWN DRAINAGE OUTPUT OBSERVED. FUAD DRAIN REMOVED PT. TOLERATE PROCEDURE WITH NO COMPLAIN. -POST FUAD DRAINAGE SITE 1X1CM WITH SMALL AMOUNT OF SANGUINEOUS DRAINAGE. AREA CLEAN WITH NS, PAT DRY, ABD PAD APPLY AND SECURE WITH TAPE. -ABDOMEN THREE SURGICAL SITES WITH MULTIPLE JOLENE IN PLACE , AREAS DRY AND CLEAN, COVERED WITH ISLAND DRESSING RECOMMENDATION: -PLEASE FOLLOW UP WITH SURGEON 7-10 DAYS POT DISCHARGE AND MAY HAVE HOME HEALTH CARE FOLLOW UP FOR WOUND CARE TO SURGICAL SITES -KEEP SURGICAL SITES DRY AND CLEAN AT ALL TIMES -ABDOMEN THREE SURGICAL SITES WITH MULTIPLE JOLENE CLEANSE WITH NS. PAT DRY AND COVERED WITH ISLAND DRESSING -POST FUAD DRAINAGE SITE CLEAN WITH NS, PAT DRY, ABD PAD APPLY AND SECURE WITH TAPE.
--- NOTE | 2018-12-03 10:18 | NUR ---
HARSH NOTE ORDER FOR HOME HEALTH, PHYSICAL THERAPY EVAL, LIST OF MEDS FAXED TO [facility] [phone] ATTN: HARSH REYNA PH# [phone] COORDINATOR JACK PH# [phone]
--- NOTE | 2018-12-03 10:30 | NUR ---
PT AT THE BEDSIDE.
--- NOTE | 2018-12-03 11:50 | NUR ---
ADMINISTERED SCHEDULED MEDICATION. PT TOLERATED WELL. NO OTHER NEEDS AT THIS TIME.
[2018-12-03] MEDS ORDERED: MAG SULF 2000 MG/WATER PREMIX 100 ML IV ONE (12:05)
--- NOTE | 2018-12-03 13:01 | NUR ---
CM NOTE PER HARSH REYNA OF [facility]# [phone], [facility]'S DISASTER RECOVERY CONSULTANT HAS OPTED TO AUTHORIZE ADDITIONAL HOSPITAL DAYS TO FINISH THE IV ZOSYN BUT PATIENT HAS TO BE DISCHARGED HOME RIGHT AFTER THE LAST DOSE OF IV ANTIBIOTIC. PER HARSH REYNA, [facility] WILL AUTHORIZE THE HOME HEALTH FOR WOUND CARE AND PT WHEN DISCHARGED HOME AND THE CLIENT ANALYST [facility] CM OVER THE WEEKEND IS CATARINA # [phone]. DR. HASSAN, CHARGE NURSE CATARINA LIN RN AWARE.
--- NOTE | 2018-12-03 14:27 | NUR ---
SPOKE WITH INSPECTOR CRYSTAL DAMARIS REGARDING PT HOME HEALTH CARE.
--- NOTE | 2018-12-03 14:28 | NUR ---
CM NOTE PER PROMED HARSH REYNA PH# [phone], THE PATIENT HAS BEEN SET UP WITH [facility] PH# [phone], AUTH# [id number], WHEN DISCHARGED. PER HARSH REYNA, [facility] IS AWARE OF PLAN OF DISCHARGE ON 12/05/18 WHEN PATIENT'S IV ANTIBIOTIC IS DONE. CATARINA RAMIREZ RN AWARE.
[2018-12-03 16:00] VITALS: BP 116/69
--- NOTE | 2018-12-03 17:55 | NUR ---
ADMINISTERED SCHEDULED MEDICATION. PT TOLERATED WELL. NO OTHER NEEDS AT THIS TIME.
--- NOTE | 2018-12-03 19:15 | NUR ---
ENDORSED PT TO BOILERMAKER MECHANIC NURSE. PT STABLE, AWAKE, AND ALERT.
--- NOTE | 2018-12-03 19:16 | NUR ---
RECEIVED REPORT FROM DAY SHIFT NURSE CATARINA ARAGON AT BEDSIDE. PT RESTING IN BED, AOX4, ON 2L/NC WITH LEFT FA #22G RUNNING ZOSYN @100ML/HR. DISCUSSED PLAN OF CARE AND PT VERBALIZED UNDERSTANDING. NO S/S OF RESPIRATORY DISTRESS OR DISCOMFORT NOTED AT THIS TIME. SKIN NON-INTACT- RIGHT SIDE DRESSING DUE TO REMOVAL OF JPEG. BED IN LOWEST POSITION, BED BREAKS ON, BOTH SIDE RAILS UP AND FALL PRECAUTIONS IN PLACE. BEDSIDE TABLE AND CALL LIGHT ARE WITHIN REACH. WILL CONTINUE TO MONITOR.
[2018-12-03 20:00] VITALS: BP 117/66
--- NOTE | 2018-12-03 20:00 | NUR ---
VITAL SIGNS TAKEN AND TOLERATED WELL. NO S/S OF RESPIRATORY DISTRESS OR DISCOMFORT NOTED AT THIS TIME. WILL CONTINUE TO MONITOR.
[2018-12-03] MEDS: LATANOPROST 0.005% OP 2.5 ML BTL OP SCH (20:57)
--- NOTE | 2018-12-03 20:57 | NUR ---
SCHEDULED MEDICATION GIVEN AND TOLERATED WELL. NO S/S OF RESPIRATORY DISTRESS OR DISCOMFORT NOTED AT THIS TIME. WILL CONTINUE TO MONITOR.
--- NOTE | 2018-12-03 22:00 | NUR ---
PT RESTING IN BED. NO S/S OF RESPIRATORY DISTRESS OR DISCOMFORT NOTED AT THIS TIME. WILL CONTINUE TO MONITOR.
--- NOTE | 2018-12-03 23:08 | NUR ---
SCHEDULED MEDICATION ZOSYN GIVEN AND TOLERATED WELL. NO S/S OF RESPIRATORY DISTRESS OR DISCOMFORT NOTED AT THIS TIME. WILL CONTINUE TO MONITOR.
[2018-12-03] MEDS ORDERED: PNEUMOCOCCAL VACCINE 23 MCG/0.5 ML VIAL IMVAC SCH (23:25)
[2018-12-03] MEDS: HYDROcodone/APAP 5/325 MG 1 TAB TAB PO PRN (23:32)
[2018-12-04] VITALS: BP 112/61
--- NOTE | 2018-12-04 | NUR ---
VITAL SIGNS TAKEN AND TOLERATED WELL. NO S/S OF RESPIRATORY DISTRESS OR DISCOMFORT NOTED AT THIS TIME. WILL CONTINUE TO MONITOR.
--- NOTE | 2018-12-04 00:15 | NUR ---
NEW IV SITE- LEFT FA #22G. SUCCESSFUL ON FIRST TRY. PT TOLERATED WELL. NO S/S OF RESPIRATORY DISTRESS OR DISCOMFORT NOTED AT THIS TIME. WILL CONTINUE TO MONITOR.
--- NOTE | 2018-12-04 02:00 | NUR ---
PT CONTINUES TO SLEEP IN BED. NO S/S OF RESPIRATORY DISTRESS OR DISCOMFORT NOTED AT THIS TIME. WILL CONTINUE TO MONITOR.
--- NOTE | 2018-12-04 04:00 | NUR ---
PT CONTINUES TO SLEEP IN BED. NO S/S OF RESPIRATORY DISTRESS OR DISCOMFORT NOTED AT THIS TIME. WILL CONTINUE TO MONITOR.
[2018-12-04] MEDS: PIPER/TAZO 2.25GM/D5W PREMIX 50 ML IV SCH ×4 (05:04→23:53)
--- NOTE | 2018-12-04 05:04 | NUR ---
SCHEDULED MEDICATION ZOSYN GIVEN AND TOLERATED WELL. NO S/S OF RESPIRATORY DISTRESS OR DISCOMFORT NOTED AT THIS TIME. WILL CONTINUE TO MONITOR.
--- NOTE | 2018-12-04 06:00 | NUR ---
PT CONTINUES TO SLEEP IN BED. NO S/S OF RESPIRATORY DISTRESS OR DISCOMFORT NOTED AT THIS TIME. WILL CONTINUE TO MONITOR.
[2018-12-04 06:54] LABS: BASOPHILS % (AUTO) 0.2 % (0.0-2.0); EOSINOPHILS # (AUTO) 0.3 K/uL (0-0.4); EOSINOPHILS % (AUTO) 2.3 % (0.0-4.0); HEMATOCRIT 34.9 % (36-52); HEMOGLOBIN 11.5 g/dL (12.0-18.0); LYMPHOCYTES # (AUTO) 1.6 K/uL (2.0-11.5); LYMPHOCYTES % (AUTO) 14.7 % (20.5-51.1); MEAN CORPUSCULAR HEMOGLOBIN 30 pg (27-31); MEAN CORPUSCULAR HGB CONC 33 g/dL (33-37); MONOCYTES # (AUTO) 0.8 K/uL (0.8-1.0); MONOCYTES % (AUTO) 7.4 % (1.7-9.3); NEUTROPHILS # (AUTO) 8.2 K/uL (1.8-7.7); NEUTROPHILS % (AUTO) 75.4 % (42.2-75.2); PLATELET COUNT (AUTO) 313 K/uL (140-450); RED BLOOD CELL COUNT(AUTO) 3.83 MIL/uL (4.20-6.10); RED CELL DISTRIBUTION WIDTH 15.2 % (11.6-13.7); WHITE BLOOD COUNT (AUTO) 10.9 K/uL (4.8-10.8)
--- NOTE | 2018-12-04 07:19 | NUR ---
ENDORSED PT CARE TO DAY SHIFT NURSE AXEL-LIZZ FOR CONTINUITY OF CARE.
--- NOTE | 2018-12-04 07:23 | NUR ---
RECEIVED BEDSIDE REPORT FROM BUSINESS DEVELOPMENT NURSE. PT RESTING IN BED, AOX4. PT IS AMBULATORY. ON DROPLET PRECAUTIONS FOR DX: FLU. PT HAS INTERMITTENT COUGHING BUT DENIES SPUTUM/PHLEGM. COARSE LUNG SOUNDS UPON AUSCULTATION. NO S/S DISTRESS. RESPIRATIONS EVEN AND UNLABORED. DENIES SOB. NO C/O PAIN OR DISCOMFORT. DRESSING OVER RT SIDE FUAD DRAIN SITE (REMOVED), C/D/I. IV SITE PATENT AND ASYMPTOMATIC, INFUSING IVF PER MD ORDERS. ALL SAFETY PRECAUTIONS IN PLACE, WILL CONTINUE TO MONITOR. Addendum: 12/04/18 at 1725 by Joseline Nava Meng, RN S/Stephany DELAROSA, DRESSINGS OVER ABD C/D/I.
[2018-12-04 07:27] LABS: ALBUMIN 1.7 g/dL (3.4-5.0); ANION GAP 8.6 (8-16); ASPARTATE AMINOTRANSFERASE 32 U/L (15-37); CARBON DIOXIDE 27.9 mmol/L (21-32); CHLORIDE 103 mmol/L (98-107); CREATININE 1.4 mg/dL (0.7-1.3); GLUCOSE 100 mg/dL (74-106); MAGNESIUM 1.6 mg/dL (1.8-2.4); PHOSPHORUS 2.5 mg/dL (2.5-4.9); POTASSIUM 3.5 mmol/L (3.5-5.1); SODIUM SERUM 136 mmol/L (136-145); TOTAL BILIRUBIN 1.3 mg/dL (0.0-1.0); UREA NITROGEN, BLOOD 16 mg/dL (7-18)
[2018-12-04 08:00] VITALS: BP 126/72
[2018-12-04] MEDS: ENOXAPARIN 30 MG/0.3 ML SYR SUBQ SCH (09:41)
[2018-12-04] MEDS: DILTIAZEM 60 MG TAB PO SCH ×2 (09:46→20:23)
[2018-12-04] MEDS: TERAZOSIN 1 MG CAP PO SCH (09:46)
[2018-12-04] MEDS: FENOFIBRATE 48 MG TAB PO SCH (09:47)
[2018-12-04] MEDS: SODIUM PHOS / POTASSIUM PHOS 1 PKT PDR PO SCH ×3 (09:47→17:55)
[2018-12-04] MEDS: LACTOBACILLUS RHAMNOSUS GG 1 EACH CAP PO SCH (09:47)
[2018-12-04] MEDS: POTASSIUM CHLORIDE 10 MEQ TABER PO SCH (09:47)
[2018-12-04] MEDS: HYDROCHLOROTHIAZIDE 25 MG TAB PO SCH (09:47)
[2018-12-04] MEDS: NACL 0.9% 1,000 ML IV SCH (09:48)
--- NOTE | 2018-12-04 09:52 | NUR ---
ADMINISTERED SCHEDULED MEDICATIONS. PT SITTING UP IN BED, WATCHING TV. NO C/O PAIN OR DISCOMFORT. ALL SAFETY PRECAUTIONS IN PLACE, WILL CONTINUE TO MONITOR.
[2018-12-04] MEDS ORDERED: MAGNESIUM OXIDE 400 MG TAB PO SCH (10:30)
--- NOTE | 2018-12-04 12:32 | NUR ---
PT HAD ONE MODERATE SIZE FORMED BM.
[2018-12-04 16:00] VITALS: BP 125/71
[2018-12-04] MEDS: HYDROcodone/APAP 5/325 MG 1 TAB TAB PO PRN (17:55)
--- NOTE | 2018-12-04 17:55 | NUR ---
ADMINISTERED NORCO FOR PT C/O ABD PAIN.
--- NOTE | 2018-12-04 19:15 | NUR ---
ENDORSED POC TO INTERNAL CONTROL SPECIALIST RN. PT IN STABLE CONDITION.
--- NOTE | 2018-12-04 19:16 | NUR ---
REPORT RECEIVED FROM AM NURSE AT BEDSIDE. PT IN STABLE CONDITION. AAOX4. INTRODUCED SELF TO PT. BOARD UPDATED. NO COMPLAINTS OF PAIN. NO SOB. AFEBRILE. IV SITE L FA 22G RUNNING NS@60ML/HR PATENT AND INTACT. SKIN WARM, DRY, AND NOT INTACT DUE TO 4 SURGICAL WOUNDS WITH DRESSINGS OVER THEM ALL DRY AND INTACT. BED LOCKED IN LOW POSITION. CALL MELTON WITHIN REACH. SAFETY PRECAUTIONS IN PLACE. ALL NEEDS MET AT THIS TIME. WILL CONTINUE TO MONITOR.
[2018-12-04] MEDS: LATANOPROST 0.005% OP 2.5 ML BTL OP SCH (20:20)
--- NOTE | 2018-12-04 20:20 | NUR ---
CARDIZEM GIVEN PO. LATANOPROST GIVEN OPTICALLY. PT TOLERATED WELL.
--- NOTE | 2018-12-04 22:15 | NUR ---
PT LAYING COMFORTABLY IN BED IN SUPINE POSITION WATCHING TV. NO S/S OF DISTRESS NOTED. WILL CONTINUE TO MONITOR.
--- NOTE | 2018-12-04 23:53 | NUR ---
CAMILO HUNG AND RUNNING. PT TOLERATING WELL.
[2018-12-05] MEDS: HYDROcodone/APAP 5/325 MG 1 TAB TAB PO PRN (01:17)
--- NOTE | 2018-12-05 01:17 | NUR ---
NORCO GIVEN FOR 6/10 PAIN. PT TOLERATED WELL.
--- NOTE | 2018-12-05 02:15 | NUR ---
PT SLEEPING COMFORTABLY IN BED. NO S/S OF DISTRESS NOTED. RESPIRATIONS EVEN, UNLABORED, AND WNL. WILL CONTINUE TO MONITOR.
[2018-12-05] MEDS: NACL 0.9% 1,000 ML IV SCH (03:00)
[2018-12-05] MEDS: PIPER/TAZO 2.25GM/D5W PREMIX 50 ML IV SCH (05:09)
--- NOTE | 2018-12-05 05:09 | NUR ---
CAMILO HUNG AND RUNNING. PT TOLERATING WELL.
[2018-12-05] MEDS ORDERED: CAR30 PO (06:46)
[2018-12-05 07:25] LABS: ALBUMIN 1.6 g/dL (3.4-5.0); ANION GAP 6.6 (8-16); ASPARTATE AMINOTRANSFERASE 24 U/L (15-37); CARBON DIOXIDE 30.4 mmol/L (21-32); CHLORIDE 103 mmol/L (98-107); CREATININE 1.4 mg/dL (0.7-1.3); GLUCOSE 88 mg/dL (74-106); MAGNESIUM 1.7 mg/dL (1.8-2.4); SODIUM SERUM 136 mmol/L (136-145); TOTAL BILIRUBIN 1.2 mg/dL (0.0-1.0); UREA NITROGEN, BLOOD 16 mg/dL (7-18)
--- NOTE | 2018-12-05 07:25 | NUR ---
REPORT GIVEN TO AM NURSE AT BEDSIDE. PT IN STABLE CONDITION.
--- NOTE | 2018-12-05 07:28 | NUR ---
RECEIVED BEDSIDE REPORT FROM MUTUEL CLERK NURSE. PT RESTING IN BED, AOX4. VITALS STABLE. PT IS AMBULATORY. ON DROPLET PRECAUTIONS FOR DX: FLU. PT HAS INTERMITTENT COUGHING BUT DENIES SPUTUM/PHLEGM. COARSE LUNG SOUNDS UPON AUSCULTATION. NO S/S DISTRESS. RESPIRATIONS EVEN AND UNLABORED. DENIES SOB. NO C/O PAIN OR DISCOMFORT. DRESSING OVER RT SIDE FUAD DRAIN SITE (REMOVED), C/D/I. S/P LAP ISAURA, DRESSINGS ON ABD C/D/I. IV SITE PATENT AND ASYMPTOMATIC, INFUSING IVF PER MD ORDERS. ALL SAFETY PRECAUTIONS IN PLACE, WILL CONTINUE TO MONITOR.
[2018-12-05] MEDS ORDERED: CIPR500T9 PO (07:35)
[2018-12-05 07:47] LABS: BASOPHILS % (AUTO) 0.3 % (0.0-2.0); EOSINOPHILS # (AUTO) 0.3 K/uL (0-0.4); EOSINOPHILS % (AUTO) 2.3 % (0.0-4.0); HEMATOCRIT 32.5 % (36-52); HEMOGLOBIN 10.6 g/dL (12.0-18.0); LYMPHOCYTES # (AUTO) 1.8 K/uL (2.0-11.5); LYMPHOCYTES % (AUTO) 16.3 % (20.5-51.1); MEAN CORPUSCULAR HEMOGLOBIN 30 pg (27-31); MEAN CORPUSCULAR HGB CONC 33 g/dL (33-37); MEAN CORPUSCULAR VOLUME 91.9 fL (80-94); MONOCYTES # (AUTO) 0.8 K/uL (0.8-1.0); MONOCYTES % (AUTO) 6.9 % (1.7-9.3); NEUTROPHILS # (AUTO) 8.3 K/uL (1.8-7.7); NEUTROPHILS % (AUTO) 74.2 % (42.2-75.2); PLATELET COUNT (AUTO) 321 K/uL (140-450); RED BLOOD CELL COUNT(AUTO) 3.54 MIL/uL (4.20-6.10); RED CELL DISTRIBUTION WIDTH 15.1 % (11.6-13.7); WHITE BLOOD COUNT (AUTO) 11.2 K/uL (4.8-10.8)
[2018-12-05 08:00] VITALS: BP 140/77
[2018-12-05] MEDS: ENOXAPARIN 30 MG/0.3 ML SYR SUBQ SCH (08:50)
--- NOTE | 2018-12-05 08:51 | NUR ---
12/05/18 RD FOLLOW UP COMPLETED PLEASE REFER TO NUTRITION PROGRESS NOTE UNDER CARE ACTIVITY FOR ESTIMATED NUTRITION NEEDS. RD RECOMMENDATIONS: 1.CONSIDER D/C CARDIAC DIET. 2.CONSIDER LIBERALIZE DIET TO 2GM SODIUM DUE TO SUBOPTIMAL PO INTAKES OF MORE RESTRICTIVE CARDIAC DIET. 3.RDN TO PROVIDE HEALTH SHAKES WITH EACH MEAL TID TO HELP MEET NUTRITION NEEDS. 4.RD WILL F/U 3-5 DAYS; MODERATE RISK. ELISHA MEYER MS, RDN
[2018-12-05] MEDS: SODIUM PHOS / POTASSIUM PHOS 1 PKT PDR PO SCH (08:52)
[2018-12-05] MEDS: FENOFIBRATE 48 MG TAB PO SCH (08:53)
[2018-12-05] MEDS: TERAZOSIN 1 MG CAP PO SCH (08:53)
[2018-12-05] MEDS: POTASSIUM CHLORIDE 10 MEQ TABER PO SCH (08:54)
[2018-12-05] MEDS: DILTIAZEM 60 MG TAB PO SCH (08:54)
[2018-12-05] MEDS: LACTOBACILLUS RHAMNOSUS GG 1 EACH CAP PO SCH (08:54)
[2018-12-05] MEDS: HYDROCHLOROTHIAZIDE 25 MG TAB PO SCH (08:54)
[2018-12-05] MEDS ORDERED: MAGNESIUM OXIDE 400 MG TAB PO SCH (10:30)
--- NOTE | 2018-12-05 11:36 | NUR ---
DISCHARGE PAPERWORK, INCLUDING INSTRUCTIONS TO F/U WITH PCP AND DR. THOMAS (APPOINTMENT DATES GIVEN TO PT), GIVEN TO PT. FLU VACCINE UP TO DATE. PNEUMOVAX ADMINISTERED. VACCINATION TEACHING GIVEN. NEW RX TEACHING AND MED RECONCILIATION TEACHING GIVEN TO PATIENT. PHOTOS OF SURGICAL WOUNDS ON ABD AND FUAD DRAIN SITE TAKEN. CLEANED AND CHANGED ALL DRESSINGS PER MD ORDERS. INFORMED PT THAT HOME [facility]ALTH [facility] WILL CONTACT PATIENT DIRECTLY REGARDING HOME HEALTH VISITS FOR WOUND CARE. PT VERBALIZED COMPLETE UNDERSTANDING OF ALL D/C TEACHING. PT HAS CALLED [facility] TO PICK HIM UP FROM HOSPITAL.
--- NOTE | 2018-12-05 11:57 | NUR ---
HOME MED LATANOPROST PLACED WITH PATIENT BELONGINGS IN PT BAG. PT AWARE.
--- NOTE | 2018-12-05 12:13 | NUR ---
IV SITE REMOVED WITH MINIMAL BLOOD LOSS AND LUMEN COMPLETELY INTACT. ID BANDS REMOVED. REVIEWED D/C TEACHING AND INSTRUCTIONS WITH [facility] AT BEDSIDE. INFORMED [facility] THAT HOME MED LATANOPROST IS IN PT BELONGINGS BAG. HOME HEALTH AGENCY TO CONTACT PATIENT TO SET UP VISIT. ANSWERED ALL QUESTIONS. [facility] VERBALIZED COMPLETE UNDERSTANDING. PT LEFT VIA WHEELCHAIR.
== END 2018-12-05 12:13 | disposition home health service (06) | DRG 853 ==
LOC: MED 12:09 → MTU 15:52 → MIC 11-29 21:35 → MTU 11-30 18:51
PROVIDERS: ADMIT General Practice; ATTEND General Practice
PROC: 0F9430Z Drainage of Gallbladder with Drainage Device, Percutaneous Approach (ICD-10-PCS; 2018-11-29)
PROC: 0FT44ZZ Resection of Gallbladder, Percutaneous Endoscopic Approach (ICD-10-PCS; principal; 2018-11-29 19:15)
PROC: 3E0234Z Introduction of Serum, Toxoid and Vaccine into Muscle, Percutaneous Approach (ICD-10-PCS; 2018-12-03)
DX: A41.9 Sepsis, unspecified organism (principal); N17.0 Acute kidney failure with tubular necrosis; E43 Unspecified severe protein-calorie malnutrition; K65.3 Choleperitonitis; K85.10 Biliary acute pancreatitis without necrosis or infection; N39.0 Urinary tract infection, site not specified; K80.00 Calculus of gallbladder with acute cholecystitis without obstruction; E83.42 Hypomagnesemia; E87.6 Hypokalemia; E78.5 Hyperlipidemia, unspecified; I10 Essential (primary) hypertension; I48.91 Unspecified atrial fibrillation; K21.9 Gastro-esophageal reflux disease without esophagitis; N40.0 Benign prostatic hyperplasia without lower urinary tract symptoms; Z96.652 Presence of left artificial knee joint; Z60.2 Problems related to living alone; J10.89 Influenza due to other identified influenza virus with other manifestations; K82.A1 Gangrene of gallbladder in cholecystitis; R31.0 Gross hematuria; Z68.24 Body mass index [BMI] 24.0-24.9, adult; Z87.891 Personal history of nicotine dependence; Z90.49 Acquired absence of other specified parts of digestive tract; Z23 Encounter for immunization
CPT/HCPCS: 36415; 71045; 71250; 76705; 78445; 80048; 80053; 80076; 81001; 82140; 82374; 82948; 83036; 83605; 83690; 83735; 83880; 84100; 84443; 84484; 85025; 85610; 86704; 86706; 86708; 86709; 86803; 86886; 86900; 86901; 87040; 87081; 87086; 87186; 87340; 87804; 88304; 90732; 93005; 96361; 96365; 97110; 97116; 97530; 99285; G0482; J0330; J0696; J1100; J1170; J1650; J2001; J2270; J2370; J2405; J2543; J2704; J3010; J3475; J3480; J3490; J7030; J7060; Q0092